=== PATIENT | female | born 1980 | race Caucasian/White ===

== ENCOUNTER 2021-02-13 22:12 | Emergency (ER) | payer BC ==
--- NOTE | 2021-02-13 23:13 | EDM.PDOC ---
ED HPI GENERAL MEDICAL PROBLEM - General Chief Complaint: General Stated Complaint: ANXIETY ATTACK Time Seen by Provider: 02/13/21 22:15 Source of Information: Reports: Family History Limitations: Reports: No Limitations - History of Present Illness INITIAL COMMENTS - FREE TEXT/NARRATIVE: Patient presented to the ED because of hyperventilation, passing out after drinking several bottles of beer. - Related Data Allergies Allergy/AdvReac Type Severity Reaction Status Date / Time amoxicillin [Amoxicillin] Allergy Swelling Verified 01/08/21 18:35 Home Meds: Home Meds Montelukast Sodium [Singulair] 20 mg PO DAILY 09/12/18 [History] .Bariatric Vitamin 1 dose PO TID 10/03/19 [History] .Iron 1 dose PO ASDIRECTED 10/03/19 [History] Calcium Carbonate/Vitamin D3 [Calcium 600 + Vit D Tablet] 1 each PO BID 10/03/19 [History] Escitalopram [Lexapro] 20 mg PO DAILY 09/14/20 [History] Lidocaine [Lidoderm] 1 each TP Q12HR #10 adh..patch 09/14/20 [Rx] Meloxicam 15 mg PO DAILY #30 tablet 09/14/20 [Rx] Naltrexone 50 mg PO DAILY 01/08/21 [History] Norethindrone-Ethin. 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 pt is seeing a chiropractor for this problem. Hx bulging disc Neurological History: Reports: Migraines Psychiatric History: Reports: Addiction, Anxiety, Depression Other Psychiatric History: hx meth addiction - Infectious Disease History Infectious Disease History: Reports: Chicken Pox, Novel Coronavirus Other Infectious Disease History: covid in septmber - Past Surgical History GI Surgical History: Reports: Bariatric Procedure, Cholecystectomy Female Surgical History: Reports: Tubal Ligation Social & Family History - Family History Family Medical History: No Pertinent Family History Cardiac: Reports: IA - Tobacco Use Tobacco Use Status *Q: Unknown Ever Used Tobacco - Caffeine Use Caffeine Use: Reports: None ED ROS GENERAL - Review of Systems Review Of Systems: See Below Constitutional: Reports: No Symptoms HEENT: Reports: No Symptoms Respiratory: Reports: No Symptoms Cardiovascular: Reports: No Symptoms Endocrine: Reports: No Symptoms GI/Abdominal: Reports: No Symptoms : Reports: No Symptoms Musculoskeletal: Reports: No Symptoms Skin: Reports: No Symptoms Neurological: Reports: Other (unresponsive episode) ED EXAM, GENERAL - Physical Exam Exam: See Below Exam Limited By: No Limitations General Appearance: Alert, No Apparent Distress Ears: Normal External Exam, Normal Canal Nose: Normal Inspection, Normal Mucosa, No Blood Throat/Mouth: Normal Inspection, Normal Lips, Normal Teeth Head: Atraumatic, Normocephalic Neck: Normal Inspection, Supple, Non-Tender, Full Range of Motion Respiratory/Chest: No Respiratory Distress, Lungs Clear, Normal Breath Sounds GI/Abdominal: Normal Bowel Sounds, Soft, Non-Tender, No Organomegaly Back Exam: Normal Inspection, Full Range of Motion Extremities: Normal Inspection, Normal Range of Motion, Non-Tender, No Pedal Edema, Normal Capillary Refill Neurological: Other (Patient is unresponsive but responds to rosa stimuli. I tried to open her eyes and she is resisting it. ) Course - Vital Signs Text/Narrative:: Lab result was reviewed an discussed with patient's significant other. She was unresponsive for a while and later on she suddenly woke up after her boyfriend left. Last Recorded V/S: Last Vital Signs Temp 36.4 C 02/13/21 22:12 Pulse 103 H 02/13/21 23:30 Resp 18 02/13/21 23:30 BP 114/67 02/13/21 23:30 Pulse Ox 97 02/13/21 23:30 - Orders/Labs/Meds Labs: Laboratory Tests 02/13/21 02/13/21 02/13/21 Range/Units 22:48 22:48 22:48 WBC 4.4 (3.0-10.3) x10-3/uL RBC 4.15 (3.60-5.20) x10(6)uL Hgb 12.0 (11.4-15.5) g/dL Hct 36.5 (34.2-48.2) % MCV 87.8 (76.7-100.5) fL MCH 29.0 (23.9-33.9) pg MCHC 33.0 (31.9-34.8) g/dL RDW 15.4 (12.3-16.5) % Plt Count 244 (151-488) x10(3)uL MPV 8.1 (7.1-12.4) fL Neut % (Auto) 35.4 (30.8-76.2) % Lymph % (Auto) 56.7 H (18.4-52.1) % [place] % (Auto) 6.2 (4.4-15.7) % Eos % (Auto) 0.8 (0.6-8.1) % Baso % (Auto) 0.9 (0.2-1.5) % Neut # (Auto) 1.6 (1.5-6.3) x10-3/uL Lymph # (Auto) 2.5 (1.0-4.4) x10-3/uL [place] # (Auto) 0.3 (0.3-1.0) x10-3/uL Eos # (Auto) 0.0 (0.0-0.8) x10-3/uL Baso # (Auto) 0.0 (0.0-0.1) x10-3/uL Sodium 143 (135-145) mmol/L Potassium 3.4 L (3.5-5.3) mmol/L Chloride 105 (100-110) mmol/L Carbon Dioxide 20 L (21-32) mmol/L BUN 9 (7-18) mg/dL Creatinine 0.7 (0.55-1.02) mg/dL Est Cr Clr Drug Dosing 93.25 mL/min Estimated GFR (MDRD) > 60 (>60) BUN/Creatinine Ratio 12.9 (9-20) Glucose 90 (80-116) mg/dL Calcium 7.8 L (8.6-10.2) mg/dL Ethyl Alcohol 0.19 H* (<0.03) % Departure - Departure Time of Disposition: 23:15 Disposition: Home, Self-Care 01 Condition: Good Clinical Impression: Alcohol intoxication, Hypokalemia - Discharge Information Instructions: Hypokalemia, Alcohol Intoxication, Evje-ut-Hrmi Referrals: PCP,None [Primary Care Provider] - Forms: ED Department Discharge Additional Instructions: Please read discharge instructions on alcohol intoxication and low potassium Follow up as needed Sepsis Event Note (ED) - Evaluation Sepsis Screening Result: No Definite Risk
== END 2021-02-13 23:50 | disposition home or self-care (01) ==
LOC: FB.ED 22:12 → MERGE 22:12 → FB.ED 23:50
DX: F10.129 Alcohol abuse with intoxication, unspecified (principal); E87.6 Hypokalemia; Y90.0 Blood alcohol level of less than 20 mg/100 ml
CPT/HCPCS: 36415; 80048; 80307; 85025; 99283; 99284

== ENCOUNTER 2021-09-29 12:43 | Emergency (ER) | payer BC, MEDICAID ==
[2021-09-29] MEDS ORDERED: Sodium Chloride 0.9% 10 ML Syringe FLUSH PRN (12:56)
[2021-09-29] MEDS ORDERED: Lactated Ringers 1,000 ML IV ONE (13:36)
[2021-09-29] MEDS ORDERED: Acetaminophen 500 MG Tab PO ONE (14:44)
== END 2021-09-29 14:55 | disposition home or self-care (01) ==
LOC: FB.ED 12:43
DX: I95.1 Orthostatic hypotension (principal); J45.909 Unspecified asthma, uncomplicated; Z86.16 Personal history of COVID-19; Z88.0 Allergy status to penicillin; Z79.899 Other long term (current) drug therapy
CPT/HCPCS: 36415; 80048; 85027; 99284; A9270-GY; J7120

== ENCOUNTER 2022-07-28 13:08 | Emergency (ER) | payer MEDICAID ==
[2022-07-28] MEDS ORDERED: Sodium Chloride 0.9% 10 ML Syringe FLUSH PRN (13:40)
[2022-07-28] MEDS ORDERED: Morphine 4 MG/ML VIAL IVPUSH ONE (13:41)
[2022-07-28] MEDS ORDERED: Ondansetron 4 MG/2 ML SDV IVPUSH ONE (13:41)
[2022-07-28] MEDS ORDERED: Iopamidol 755 Mg/ML 75 ML Bottle IV ONE (13:44)
[2022-07-28] MEDS ORDERED: Sodium Chloride 0.9% 1,000 ML IV SCH (13:45)
[2022-07-28 14:10] LABS: ESTIMATED GFR 93 mL/min (>60)
== END 2022-07-28 15:50 | disposition home or self-care (01) ==
LOC: FB.ED 13:08
DX: K52.9 Noninfective gastroenteritis and colitis, unspecified (principal); J45.909 Unspecified asthma, uncomplicated; Z88.0 Allergy status to penicillin; Z88.8 Allergy status to other drugs, medicaments and biological substances; Z79.899 Other long term (current) drug therapy
CPT/HCPCS: 36415; 74177; 80053; 82150; 83690; 85025; 96361; 96374; 96375; 99284; J2270; J2405; J3490; J7030; Q9967

== ENCOUNTER 2022-08-19 21:56 | Emergency (ER) | payer MEDICAID ==
[2022-08-19] MEDS ORDERED: Thiamine 200 MG/2 ML MDV IVPUSH STA (22:05)
[2022-08-19] MEDS ORDERED: Sodium Chloride 0.9% 10 ML Syringe FLUSH PRN (22:05)
[2022-08-19] MEDS ORDERED: Naloxone 0.4 MG/ML SDV IVPUSH STA (22:07)
[2022-08-19] MEDS ORDERED: Sodium Chloride 0.9% 1,000 ML IV SCH (22:15)
[2022-08-19 22:40] LABS: ESTIMATED GFR 109 mL/min (>60)
== END 2022-08-20 00:15 | disposition home or self-care (01) ==
LOC: FB.ED 21:56
DX: F10.229 Alcohol dependence with intoxication, unspecified (principal); J45.909 Unspecified asthma, uncomplicated; Z88.0 Allergy status to penicillin; Z88.6 Allergy status to analgesic agent; Z79.899 Other long term (current) drug therapy
CPT/HCPCS: 36415; 80053; 80307; 82150; 83690; 85025; 96361; 96374; 96375; 99283; 99284; J2310; J3411; J3490; J7030

== ENCOUNTER 2022-11-19 10:46 | Emergency (ER) | payer MEDICAID ==
[2022-11-19] MEDS ORDERED: traMADol 50 MG Tab PO ONE (10:50)
[2022-11-19] MEDS ORDERED: Acetaminophen 500 MG Tab PO ONE (10:51)
[2022-11-19] MEDS ORDERED: Morphine 4 MG/ML VIAL IM ONE (11:49)
== END 2022-11-19 12:07 | disposition home or self-care (01) ==
LOC: FB.ED 10:46
DX: S06.0X0A Concussion without loss of consciousness, initial encounter (principal); Z88.0 Allergy status to penicillin; Z88.8 Allergy status to other drugs, medicaments and biological substances; Z86.16 Personal history of COVID-19; Y04.0XXA Assault by unarmed brawl or fight, initial encounter
CPT/HCPCS: 99284; A9270; J2270; 99283

== ENCOUNTER 2025-06-02 23:20 | Emergency (ER) | payer MEDICAID ==
[2025-06-03 00:02] LABS: BASOPHILS ABSOLUTE AUTO 0.0 x10-3/uL (0.0-0.1); EOSINOPHILS ABSOLUTE AUTO 0.0 x10-3/uL (0.0-0.8); LYMPHOCYTES ABSOLUTE AUTO 2.5 x10-3/uL (1.0-4.4); RED BLOOD CELL COUNT 4.15 x10(6)uL (3.60-5.20)
[2025-06-03 00:04] LABS: BASOPHILS PERCENT AUTO 0.8 % (0.2-1.5); EOSINOPHILS PERCENT AUTO 0.7 % (0.6-8.1); LYMPHOCYTES PERCENT AUTO 53.7 % (18.4-52.1); MEAN PLATELET VOLUME 8.8 fL (7.1-12.4); MONOCYTES ABSOLUTE AUTO 0.4 x10-3/uL (0.3-1.0); MONOCYTES PERCENT AUTO 7.9 % (4.4-15.7); NEUTROPHILS ABSOLUTE AUTO 1.7 x10-3/uL (1.5-6.3); NEUTROPHILS PERCENT AUTO 36.9 % (30.8-76.2); PLATELET COUNT,PLT 179 x10(3)uL (151-488); RED CELL DISTRIBUTION WIDTH 15.7 % (12.3-16.5); WHITE BLOOD CELL COUNT,WBC 4.7 x10-3/uL (3.0-10.3)
[2025-06-03 00:06] LABS: BLOOD UREA NITROGEN,BUN 8 mg/dL (7-18); CARBON DIOXIDE,CO2 29 mmol/L (21-32); CHLORIDE,CL 100 mmol/L (100-110); CREATININE 0.6 mg/dL (0.55-1.02); EST CRCL DRUG DOSING (CG) 104.30 mL/min; ESTIMATED GFR 111 mL/min (>60); GLUCOSE RANDOM 86 mg/dL (80-116); POTASSIUM,K 4.0 mmol/L (3.5-5.3); SODIUM,NA 136 mmol/L (135-145)
[2025-06-03 00:18] LABS: A/G RATIO 1.0; ALANINE AMINOTRANSFERASE,ALT 18 U/L (12-36); ASPARTATE AMNIOTRANSFERASE,AST 20 IU/L (5-25); BILIRUBIN TOTAL 0.3 mg/dL (0.1-1.3); PROTEIN TOTAL,TP 6.8 g/dL (6.0-8.0)
== END 2025-06-03 00:47 | disposition home or self-care (01) ==
LOC: FB.ED 23:20
DX: R56.9 Unspecified convulsions (principal); Z88.0 Allergy status to penicillin; Z88.8 Allergy status to other drugs, medicaments and biological substances; Z79.899 Other long term (current) drug therapy; Z86.16 Personal history of COVID-19; Z90.49 Acquired absence of other specified parts of digestive tract
CPT/HCPCS: 80053; 80307; 85025; 96365; 99284; J1953

== ENCOUNTER 2025-07-31 11:54 | Emergency (ER) | payer MEDICAID ==
[2025-07-31] MEDS: Ondansetron 4 MG Tab.DIS PO STA (12:56)
== END 2025-07-31 13:55 | disposition home or self-care (01) ==
LOC: FB.ED 11:54
DX: S00.83XA Contusion of other part of head, initial encounter (principal); S00.33XA Contusion of nose, initial encounter; J45.909 Unspecified asthma, uncomplicated; K21.9 Gastro-esophageal reflux disease without esophagitis; F17.200 Nicotine dependence, unspecified, uncomplicated; Z86.16 Personal history of COVID-19; Z98.84 Bariatric surgery status; Z90.49 Acquired absence of other specified parts of digestive tract; Z88.0 Allergy status to penicillin; Z88.8 Allergy status to other drugs, medicaments and biological substances; Z79.899 Other long term (current) drug therapy; W01.0XXA Fall on same level from slipping, tripping and stumbling without subsequent striking against object, initial encounter
CPT/HCPCS: 70450; 70486; 72125; 99283; A9270; Q0162